=== PATIENT | female | born 1970 | race Caucasian/White ===

== ENCOUNTER → 2023-06-21 | Outpatient (REF) | payer OTHER | LOC: MAMMO 11:06 | PROVIDERS: ATTEND Internal Medicine | DX: Z12.31 Encounter for screening mammogram for malignant neoplasm of breast (principal) | CPT/HCPCS: 77067 ==

== ENCOUNTER → 2024-07-26 | Outpatient (REF) | payer OTHER | LOC: MAMMO 12:51 | PROVIDERS: ATTEND Internal Medicine | DX: Z12.31 Encounter for screening mammogram for malignant neoplasm of breast (principal) | CPT/HCPCS: 77067 ==